=== PATIENT | male | born 1945 | race Two or more races ===

== ENCOUNTER 2016-12-11 10:01 | Inpatient (IN) | payer MEDICARE ==
[~2016-12-11] VITALS: Ht 162.6 cm; Wt 68.0 kg
--- NOTE | 2016-12-11 10:05 | NUR ---
PT TO ED ROOM 08. BIB RA 60, C/O VOMITING. A/A/O. VS WNL. CHANGED TO GOWN. CONNECTED TO MONITOR. R AC G 20 IV POA. SEEN AND EVALUATED BY ED PROVIDER.
[2016-12-11] MEDS ORDERED: ONDANSETRON HCL/PF 4 MG/2 ML VIAL ONE (10:15)
[2016-12-11] MEDS ORDERED: IV SET PRIMARY 1 EA INFUS.SET MC ONE ×2 (10:15→11:27)
[2016-12-11] MEDS ORDERED: IV NS 0.9% 1,000 ML ONE ×2 (10:15→11:27)
[2016-12-11] MEDS ORDERED: IV NS 0.9% 1,000 ML BAG IV ONE (10:30)
[2016-12-11] MEDS ORDERED: ONDANSETRON HCL/PF 4 MG/2 ML VIAL IVP ONE (10:30)
[2016-12-11 10:34] LABS: CALCIUM, SERUM 8.4 mg/dL (8.5-10.1); CARBON DIOXIDE 24 mmol/L (21-32); CHLORIDE 105 mmol/L (98-107); CREATININE 1.6 mg/dL (0.6-1.3); GLUCOSE 150 mg/dL (74-106); POTASSIUM 3.8 mmol/L (3.5-5.1); SODIUM SERUM 139 mmol/L (136-145); UREA NITROGEN, BLOOD 20 mg/dL (7-18)
[2016-12-11 10:35] LABS: BASOPHILS # (AUTO) 0.1 /CMM (0.0-0.2); BASOPHILS % (AUTO) 1.6 % (0.0-2.0); EOSINOPHILS # (AUTO) 0.2 /CMM (0.0-0.7); HEMATOCRIT 41 % (39-51); HEMOGLOBIN 12.8 g/dL (13.5-17.5); LYMPHOCYTES # (AUTO) 1.8 /CMM (0.8-4.8); LYMPHOCYTES % (AUTO) 19.8 % (20.0-44.0); MEAN CORPUSCULAR HEMOGLOBIN 23 PG (26.0-33.0); MEAN CORPUSCULAR HGB CONC 31 g/dl (31.0-36.0); MEAN CORPUSCULAR VOLUME 74 fL (80-96); MONOCYTES # (AUTO) 0.5 /CMM (0.1-1.30); NEUTROPHILS # (AUTO) 6.4 /CMM (1.8-8.9); NEUTROPHILS % (AUTO) 70.6 % (43.0-81.0); PLATELET COUNT (AUTO) 244 /CMM (150-450); RDW COEFFICIENT OF VARIATION 22.4 (11.5-15.0); RED BLOOD CELL COUNT(AUTO) 5.51 MIL/uL (4.5-6.0)
[2016-12-11 10:40] LABS: ALANINE AMINOTRANSFERASE 32 U/L (12-78); ALBUMIN 3.5 g/dL (3.4-5.0); ALKALINE PHOSPHATASE 131 U/L (46-116); ASPARTATE AMINOTRANSFERASE 29 U/L (15-37); BILIRUBIN,DIRECT 0.1 mg/dL (0.0-0.2); BILIRUBIN,TOTAL 0.6 mg/dL (0.2-1.0); TOTAL PROTEIN, SERUM 7.2 g/dL (6.4-8.2)
[2016-12-11 10:42] LABS: TROPONIN I < 0.017 ng/mL (0.00-0.056)
--- NOTE | 2016-12-11 11:13 | NUR ---
Lety brink in [facility] - 12/11/16 at 1122 by JARVIS CALLED ON PHOTO INTERN FOR DUPLEX
[2016-12-11] MEDS ORDERED: MECLIZINE HCL 25 MG TABLET ONE (11:26)
[2016-12-11] MEDS ORDERED: IV NS 0.9% 1,000 ML IV ONE (11:30)
[2016-12-11] MEDS ORDERED: MECLIZINE HCL 12.5 MG TABLET PO ONE (11:30)
[2016-12-11] MEDS ORDERED: FERR-58 PO (12:30)
--- NOTE | 2016-12-11 12:47 | NUR ---
PT ASSIGNED [facility] 325-1
--- NOTE | 2016-12-11 12:58 | NUR ---
REPORT GIVEN TO NORMAN TREADWELL 325-1.
--- NOTE | 2016-12-11 13:30 | NUR ---
MS/POLISHER BRASS PT. WAS ADMITTED IN STABLE CONDITION FROM EMERGENCY DEPARTMENT. REPORT WAS GIVEN. NO S/S OF DISTRESS, NO SOB, BREATHING IS EVEN AND UNLABORES. BED IS IN LOW POSITION, CALL LIGHT WITHIN REACH, AND ALL NEEDS ATTENDED TO. COMPLETED BELONGINGS CHECKLIST, SKIN ASSESSMENT PERFORMED AND SKIN INTACT. WILL CONTINUE TO ASSESS AND MONITOR.
[2016-12-11 13:40] VITALS: BP 176/89
--- NOTE | 2016-12-11 13:40 | NUR ---
MS/RN PT.'S DAUGHTER SAHIL, TRANSLATED FROM [place] TO [place]. PT. IS A&OX4.
[2016-12-11 14:00] VITALS: BP 160/98
[2016-12-11 16:00] VITALS: BP 153/88
[2016-12-11 16:09] VITALS: BP 153/88
[2016-12-11] MEDS ORDERED: ONDANSETRON HCL/PF 4 MG/2 ML VIAL IVP PRN (16:30)
[2016-12-11] MEDS ORDERED: ZOLPIDEM TARTRATE 5 MG TABLET PO PRN (16:30)
[2016-12-11] MEDS ORDERED: Z GUARD REMEDY 2 OZ OINT TP PRN (16:30)
[2016-12-11] MEDS ORDERED: IV NS 0.9% 1,000 ML IV PRN (16:30)
[2016-12-11] MEDS ORDERED: IV SET PRIMARY PUMP SET 1 EA INFUS.SET MC ONE (16:32)
[2016-12-11] MEDS: ACETAMINOPHEN 325 MG TABLET PO PRN (16:42)
[2016-12-11 17:12] VITALS: BP_SYST 155; BP_SYST 158; BP_SYST 169; BP_DIAS 84; BP_DIAS 87
[2016-12-11 19:00] VITALS: BP 142/77
--- NOTE | 2016-12-11 19:30 | NUR ---
MS/RN CLOSING NOTE PT.'S FAMILY IS NEAR BEDSIDE. PT. IS LYING IN BED A&OX4 IN STABLE CONDITION. NO S/S OF DISTRESS, NO SOB, BREATHING ON ROOM AIR EVEN AND UNLABORED. PT. HAS A IV FLUIDS RUNNING AT 250ML/HR ON THE RIGHT ANTECUBITAL IV ACCESS. TYLENOL WAS GIVEN FOR HEADACHE, AND ZOFRAN FOR NAUSEA. TELEMETRY LACING STRING CUTTER AND LEADS ARE ON. BED IS IN LOW POSITION, 2 SIDE RAILS UP, CALL LIGHT WITHIN REACH, AND ALL NEEDS ATTENDED TO. WILL ENDORSE REPORT TO BENCH WORKER BINDING NURSE.
[2016-12-12] VITALS (10 sets, daily range): BP systolic 128–160; BP diastolic 59–91
[2016-12-12] MEDS: IV NS 0.9% 1,000 ML IV PRN (00:22)
--- NOTE | 2016-12-12 06:25 | NUR ---
PACKER INSULATION NOTES AWAKE & RESPONSIVE. NOT IN ANY DISTRESS. NO SOB NOTED. DENIES ANY PAIN OR DISCOMFORT AT THIS TIME. ON TELE SB @ 50 WITH IV-HL PATENT & INTACT. MONITORED ACCORDINGLY. CALL LIGHT WITHIN REACH. BED IN LOWEST POSITION. SR UP X 2 FOR SAFETY. WILL ENDORSE TO NEXT SHIFT.
[2016-12-12 07:18] LABS: BASOPHILS # (AUTO) 0.1 /CMM (0.0-0.2); BASOPHILS % (AUTO) 0.7 % (0.0-2.0); EOSINOPHILS # (AUTO) 0.1 /CMM (0.0-0.7); EOSINOPHILS % (AUTO) 1.8 % (0.0-6.0); HEMATOCRIT 35 % (39-51); HEMOGLOBIN 11.3 g/dL (13.5-17.5); LYMPHOCYTES % (AUTO) 12.7 % (20.0-44.0); MEAN CORPUSCULAR HEMOGLOBIN 24 PG (26.0-33.0); MEAN CORPUSCULAR HGB CONC 32 g/dl (31.0-36.0); MEAN CORPUSCULAR VOLUME 75 fL (80-96); MONOCYTES # (AUTO) 0.5 /CMM (0.1-1.30); MONOCYTES % (AUTO) 6.2 % (2.0-12.0); NEUTROPHILS # (AUTO) 6.1 /CMM (1.8-8.9); NEUTROPHILS % (AUTO) 78.6 % (43.0-81.0); PLATELET COUNT (AUTO) 203 /CMM (150-450); RED BLOOD CELL COUNT(AUTO) 4.74 MIL/uL (4.5-6.0); WHITE BLOOD COUNT (AUTO) 7.7 K/uL (4.3-11.0)
[2016-12-12 07:26] LABS: ALBUMIN 2.7 g/dL (3.4-5.0); BILIRUBIN,TOTAL 0.8 mg/dL (0.2-1.0); CALCIUM, SERUM 7.9 mg/dL (8.5-10.1); CREATININE 1.5 mg/dL (0.6-1.3); MAGNESIUM 1.8 mg/dL (1.8-2.4); PHOSPHORUS 2.7 mg/dL (2.5-4.9); POTASSIUM 4.1 mmol/L (3.5-5.1); TOTAL PROTEIN, SERUM 5.8 g/dL (6.4-8.2)
--- NOTE | 2016-12-12 07:30 | NUR ---
MS/RN OPENING NOTE PT. IS LYING IN BED AWAKE, A&OX4. NO SOB, PT. BREATHING ON ROOM AIR UNLABORED AND EVENLY. NO C/O DIZZINESS, DENIES PAIN, AND NO S/S OF DISTRESS. PT. HAS RIGHT ANTECUBITAL IV SITE WITH IV FLUIDS RUNNING AT 75ML/HR. PT. IS WEARING AN EXTERNAL ELECTRONICS WARFARE TECHNICIAN WITH ALL LEADS ON. PT. IS IN NORMAL SINUS RHYTHM BPM 60. BED IS IN LOW POSITION, CALL LIGHT WITHIN REACH, AND ALL NEEDS ATTENDED TO.
[2016-12-12 07:32] LABS: THYROID STIMULATING HORMONE 0.83 uIU/mL (0.358-3.74)
[2016-12-12] MEDS: ASPIRIN EC 81 MG TABLET.DR PO SCH (08:12)
--- NOTE | 2016-12-12 08:58 | NUR ---
MS/CARDIAC CATHETERIZATION TECHNOLOGIST CALL SPOKE WITH PT.'S DAUGHTER ALEKSANDAR ON THE PHONE. PROVIDED DAUGHTER WITH UPDATE ON PT.'S CONDITION, AND ANSWERED ALL QUESTIONS. ALEKSANDAR'S PHONE NUMBER [phone].
--- NOTE | 2016-12-12 13:34 | NUR ---
PT NEEDS NEW IV LINE, RN WILL CALL WHEN READY.
[2016-12-12] MEDS ORDERED: IOHEXOL-350 100 ML VIAL IV ONE (14:02)
--- NOTE | 2016-12-12 15:00 | NUR ---
MS/RN CT WITH CONTRAST PT. RETUNED BACK TO SAME ROOM AFTER COMPUTED TOMOGRAPHY SCAN WITH CONTRAST FOR THE CAROTID ARTERY AND BRAIN.
--- NOTE | 2016-12-12 15:34 | NUR ---
MS/RN LEFT ANTECUBITAL SITE INFILTRATED.
--- NOTE | 2016-12-12 19:30 | NUR ---
DIRECTOR OF [employer]ETERANS AFFA[employer] NOTE PT. IS IN BED AWAKE, A&OX4, WITH FAMILY NEAR BEDSIDE. NO SOB, NO S/S OF DISTRESS. PT. IS ON PRODUCTION ADMINISTRATOR WITH LEADS ON, SINUS RHYTHM 50 BPM. PT. HAS IV FLUIDS RUNNING AT 75ML/HR ON NEW LEFT HAND IV SITE. BED IS IN LOW POSITION, 2 SIDE RAILS UP, CALL LIGHT WITHIN REACH. WILL CONTINUE TO MONITOR.
--- NOTE | 2016-12-12 19:45 | NUR ---
MS/RN CLOSING NOTE PT. IS IN BED AWAKE, A&OX4, WITH FAMILY NEAR BEDSIDE. NO SOB, NO S/S OF DISTRESS. PT. IS ON COSMETIC SALES WITH LEADS ON, SINUS RHYTHM 50 BPM. PT. HAS IV FLUIDS RUNNING AT 75ML/HR ON NEW LEFT HAND IV SITE. BED IS IN LOW POSITION, 2 SIDE RAILS UP, CALL LIGHT WITHIN REACH, AND ALL NEEDS ATTENDED TO. WILL ENDORSE TO MANAGER PROGRAM MANAGEMENT NURSE.
[2016-12-13] VITALS (11 sets, daily range): BP systolic 146–174; BP diastolic 80–89
--- NOTE | 2016-12-13 06:27 | NUR ---
PATTERN CHAIN MAKER SUPERVISOR NOTE PATIENT STABLE. SLEEPING AT THIS TIME. NO RESPIRATORY DISTRESS NOTED. TELE READING SB 49. IV SITE INTACT, WITH FLUIDS RUNNING ORDERED. ALL NEEDS MET AND ATTENDED TO. WILL ENDORSE TO DAY SHIFT FOR SONY.
[2016-12-13] MEDS: IV NS 0.9% 1,000 ML IV PRN (06:51)
[2016-12-13 07:08] LABS: BASOPHILS # (AUTO) 0.1 /CMM (0.0-0.2); EOSINOPHILS # (AUTO) 0.2 /CMM (0.0-0.7); EOSINOPHILS % (AUTO) 2.2 % (0.0-6.0); HEMATOCRIT 37 % (39-51); LYMPHOCYTES # (AUTO) 1.2 /CMM (0.8-4.8); MEAN CORPUSCULAR HEMOGLOBIN 24 PG (26.0-33.0); MEAN CORPUSCULAR HGB CONC 32 g/dl (31.0-36.0); MEAN CORPUSCULAR VOLUME 75 fL (80-96); MONOCYTES # (AUTO) 0.6 /CMM (0.1-1.30); MONOCYTES % (AUTO) 8.2 % (2.0-12.0); NEUTROPHILS # (AUTO) 5.3 /CMM (1.8-8.9); NEUTROPHILS % (AUTO) 71.6 % (43.0-81.0); PLATELET COUNT (AUTO) 199 /CMM (150-450); RDW COEFFICIENT OF VARIATION 24.2 (11.5-15.0); RED BLOOD CELL COUNT(AUTO) 5.01 MIL/uL (4.5-6.0); WHITE BLOOD COUNT (AUTO) 7.3 K/uL (4.3-11.0)
[2016-12-13 07:27] LABS: BILIRUBIN,TOTAL 0.9 mg/dL (0.2-1.0); CALCIUM, SERUM 8.2 mg/dL (8.5-10.1); CREATININE 1.5 mg/dL (0.6-1.3); MAGNESIUM 1.8 mg/dL (1.8-2.4); PHOSPHORUS 2.6 mg/dL (2.5-4.9); POTASSIUM 4.4 mmol/L (3.5-5.1); TOTAL PROTEIN, SERUM 6.3 g/dL (6.4-8.2)
--- NOTE | 2016-12-13 07:30 | NUR ---
GARMENT PRESSER INITIAL NOTES PATIENT WAS RECEIVED AWAKE WITH NO SIGNS OF DISTRESS AND NO COMPLAINTS OF PAIN. PATIENT IS ALERT AND ORIENTED X3. BREATHING ON ROOM AIR WITH NO SOB NOTED. IV ACCESS ON LEFT HAND #20 WITH NS RUNNING @ 75ML/HR NO INFILTRATION NOTED. BED IS IN LOWEST POSITION, CALL LIGHT WITHIN REACH. ALL SAFETY PRECAUTIONS MAINTAINED . WILL CONTINUE TO MONITOR ACCORDINGLY.
[2016-12-13] MEDS: ASPIRIN EC 81 MG TABLET.DR PO SCH (08:38)
--- NOTE | 2016-12-13 09:00 | NUR ---
SURVEY TECHNOLOGIST NOTES PT BP WAS 160/82. DR MÁRQUEZ WAS NOTIFIED. NEW ORDERS FOR BP MEDICATIONS AND ORDER FOR DISCHARGE
[2016-12-13] MEDS ORDERED: VALS40TA4 PO (09:24)
[2016-12-13] MEDS ORDERED: AMLO10TA4 PO (09:24)
[2016-12-13] MEDS ORDERED: ASPI-991 PO (09:24)
[2016-12-13] MEDS ORDERED: VALSARTAN 40 MG TABLET PO SCH (09:30)
[2016-12-13] MEDS: AMLODIPINE BESYLATE 5 MG TABLET PO SCH (10:20)
--- NOTE | 2016-12-13 12:12 | NUR ---
MS/reservations manager Spoke with Sandrine piano case maker. Informed that discharge order was entered for patient and that he was in agreement to go to detention facility. Per CM, will hold discharge today and discharge tomorrow as three qualifying days are needed. Patient informed and in agreement.
--- NOTE | 2016-12-13 16:19 | NUR ---
MS/RN S/B Dr Blank Seen by Dr Blank - patient at baseline for renal function.
--- NOTE | 2016-12-13 18:51 | NUR ---
MS RN CLOSING NOTES PT IS LAYING IN BED RESTING, DENIES PAIN ALL SHIFT. A/O X4, ESTONIAN SPEAKING. PT IS AMBULATORY AND SKIN IS INTACT. PT IS ON MECHANICAL SOFT DIET. IV ACCESS ON LEFT HAND #20 WITH NS @75 ML/HR. DR. MÁRQUEZ ORDERED BP MEDS FOR HIS HIGH BP. PLAN IS TO DISCHARGE TO SNF, FOLLOW UP WITH CASE MANAGEMENT. WILL HAND OFF REPORT TO STRIPE MATCHER
--- NOTE | 2016-12-13 19:30 | NUR ---
AGRICULTURE INTERNSHIP NOTE PT. IS IN BED AWAKE, A&OX4. NO SOB, NO S/S OF DISTRESS. PT. IS ON ROCK PICKER WITH LEADS ON, SINUS RHYTHM 54 BPM. PT. HAS IV FLUIDS RUNNING AT 75ML/HR ON NEW LEFT HAND IV SITE. BED IS IN LOW POSITION, 2 SIDE RAILS UP, CALL LIGHT WITHIN REACH. WILL CONTINUE TO MONITOR.
[2016-12-14] VITALS: BP 152/84
[2016-12-14] MEDS: IV NS 0.9% 1,000 ML IV PRN (02:21)
[2016-12-14] MEDS: ACETAMINOPHEN 325 MG TABLET PO PRN (02:21)
[2016-12-14 04:00] VITALS: BP 152/69
--- NOTE | 2016-12-14 06:44 | NUR ---
MS RN CLOSING NOTES PT IS LAYING IN BED RESTING, DENIES PAIN ALL SHIFT. A/O X4, BHUTANESE SPEAKING. PT IS AMBULATORY AND SKIN IS INTACT. PT IS ON MECHANICAL SOFT DIET. IV ACCESS ON LEFT HAND #20 WITH NS @75 ML/HR.PLAN IS TO DISCHARGE TO SNF, FOLLOW UP WITH CASE MANAGEMENT. WILL HAND OFF REPORT TO DAY SHIFT.
--- NOTE | 2016-12-14 07:10 | NUR ---
TECHNICAL ANALYST NOTE: RECEIVED PATIENT WHILE RESTING IN BED, A/OX 4. BREATHING EVEN AND UNLABORED ON ROOM AIR. NO SOB, NO DISTRESS/DISCOMFORT AT THE MOMENT. PT STATING HE STILL HAS MINIMAL DIZZINESS, BUT IS COMFORTABLE AT THIS TIME. ALL NEEDS ATTENDED TO, SAFETY MEASURES IN PLACE, WILL CONTINUE TO MONITOR.
[2016-12-14 08:00] VITALS: BP 158/87
[2016-12-14] MEDS: ASPIRIN EC 81 MG TABLET.DR PO SCH (08:50)
[2016-12-14] MEDS: AMLODIPINE BESYLATE 5 MG TABLET PO SCH (08:50)
[2016-12-14] MEDS ORDERED: VALSARTAN 40 MG TABLET PO SCH (09:00)
[2016-12-14 12:00] VITALS: BP 147/80
[2016-12-14] MEDS ORDERED: CLONIDINE HCL 0.1 MG TABLET PO ONE (13:30)
--- NOTE | 2016-12-14 13:30 | NUR ---
RN NOTE: DR. PARSON MADE AWARE THAT PATIENTS BP RUNS HIGH, SBP IN 150'S. PATIENT IS TO BE DISCHARGED LATER TODAY. MD STATED OKAY TO ORDER 1 TIME CLONIDINE PRIOR TO DISCHARGE IF NEEDED. ORDER PLACED, WILL REASSESS AT TIME OF DISCHARGE.
--- NOTE | 2016-12-14 14:40 | NUR ---
DISCHARGE NOTE: PATIENT'S CLEARED FOR DISCHARGE PER DR. PARSON. PATIENT IN STABLE CONDITION, NO COMPLICATIONS NOTED. PATIENTS EXIT CARE COMPLETED, ALL FORMS SIGNED, COPIES PLACED IN CHART. ALL BELONGINGS IN PLACE. PATIENT PROVIDED WITH DISCHARGE TEACHING REGARDING MEDICATIONS AND NEED TO F/U WITH PRIMARY MD AND DR. SCHMITZ IN 1 WEEK. PATIENT VERBALIZES UNDERSTANDING. PATIENTS IV REMOVED, ID BAND REMOVED, TELE MONITOR REMOVED AND RETURNED TO STATION. REPORT GIVEN TO EMT. ALL NEED MET. PATIENT DISCHARGED TO [facility] WITH EMT VIA STRETCHER.
== END 2016-12-14 14:35 | DRG 683 ==
LOC: ER 10:03 → TELE 12:58
PROVIDERS: ADMIT Nurse Practitioner Acute Care; ATTEND Nurse Practitioner Acute Care
DX: N17.0 Acute kidney failure with tubular necrosis (principal); B69.9 Cysticercosis, unspecified; E86.0 Dehydration; T67.9XXA Effect of heat and light, unspecified, initial encounter; X58.XXXA Exposure to other specified factors, initial encounter; Y92.9 Unspecified place or not applicable; K59.00 Constipation, unspecified; D50.9 Iron deficiency anemia, unspecified; N18.9 Chronic kidney disease, unspecified; I12.9 Hypertensive chronic kidney disease with stage 1 through stage 4 chronic kidney disease, or unspecified chronic kidney disease; Z79.82 Long term (current) use of aspirin; Z79.899 Other long term (current) drug therapy
CPT/HCPCS: 36415; 70450-TC; 70496-TC; 70498-TC; 80048-TC; 80053-TC; 80061-TC; 80076-TC; 83735-TC; 84100-TC; 84443-TC; 84484-TC; 85025-TC; 87081-TC; 93307-TC; 93880-TC; A4606; J2405; J7030; J8597; Q9967; Z7610